=== PATIENT | female | born 1955 | race African-American/Black ===

== ENCOUNTER 2018-09-30 10:39 | Observation (INO) ==
[2018-09-30 12:10] LABS: Basophils % 0.7 % (0.0-0.8); Eosinophils # 0.2 10*3/uL (0.0-0.87); Eosinophils % 2.7 % (0.00-10.9); Hemoglobin 13.8 GM/DL (12.0-16.0); Immature Granulocytes % 0.5 %; Immature Granulocytes Absolute 0.03 #; Lymphocytes # 1.9 10*3/uL (1.4-4.0); Lymphocytes % 32.1 % (21.3-54.2); Mean Corpuscular HGB Conc 31.4 GM/DL (32-36); Mean Corpuscular Hemoglobin 27 PG (27-34); Mean Corpuscular Volume 85.1 FL (87-102); Mean Platelet Volume 11.1 FL (9.6-12.0); Monocytes # 0.4 10*3/uL (0.11-0.8); Monocytes % 6.9 % (1.7-12.7); Neutrophils # 3.4 10*3/uL (1.4-7.4); Neutrophils % 57.1 % (38.7-73.9); Platelet Count 192 T/CUMM (130-400); Red Blood Count 5.17 MC/CUMM (3.8-5.5); Red Cell Distribution Width 16.4 % (9.3-17.3)
[2018-09-30 12:37] LABS: Albumin 3.3 G/DL (3.4-5.0); Bilirubin,Total 0.4 MG/DL (0.2-1.0); Calcium 9.5 MG/DL (8.5-10.1); Osmolality,Calculated 294.9 MOS/KG (273-304); Potassium 5.5 MMOL/L (3.5-5.1); Total Protein 8.5 G/DL (6.4-8.3)
[2018-09-30] MEDS ORDERED: INSULIN REGULAR 100 UNIT/ML SUBCUT STA (12:55)
[2018-09-30] MEDS ORDERED: GLUCAGON 1 MG VIAL IM PRN (14:20)
[2018-09-30] MEDS ORDERED: LACTULOSE 20 GM/30 ML UDCUP PO PRN (14:20)
[2018-09-30] MEDS ORDERED: DEXTROSE 50% 25 GM/50 ML VIAL IV PRN (14:20)
[2018-09-30] MEDS ORDERED: ACETAMINOPHEN 325 MG TABLET PO PRN (14:20)
[2018-09-30] MEDS ORDERED: ONDANSETRON 4 MG/2 ML VIAL IV PRN (14:20)
[2018-09-30] MEDS ORDERED: DOCUSATE SODIUM 100 MG CAPSULE PO PRN (14:20)
[2018-09-30 14:56] LABS: Risk Ratio 5.95; Thyroid Stimulating Hormone 1.24 uIU/ml (0.358-3.74); VLDL CHOLESTEROL 51.4 MG/DL
[2018-09-30] MEDS ORDERED: INSULIN GLARGINE 100 UNIT/ML SUBCUT SCH (21:00)
[2018-09-30] MEDS: HEPARIN 5,000 UNIT/1 ML VIAL SUBCUT SCH (21:04)
[2018-09-30] MEDS: INSULIN REGULAR 100 UNIT/ML SUBCUT SCH ×2 (21:05→21:06)
[2018-09-30] MEDS: CALCIUM CARBONATE CHEW 500 MG TABLET PO SCH (21:07)
[2018-09-30] MEDS: PANTOPRAZOLE 40 MG TABLET PO SCH (21:07)
[2018-09-30] MEDS: CARVEDILOL 6.25 MG TABLET PO SCH (21:07)
[2018-10-01] MEDS: HEPARIN 5,000 UNIT/1 ML VIAL SUBCUT SCH ×2 (01:13→06:48)
[2018-10-01 06:49] LABS: Basophils % 0.6 % (0.0-0.8); Eosinophils # 0.2 10*3/uL (0.0-0.87); Eosinophils % 2.9 % (0.00-10.9); Hematocrit 40.3 VOL% (35.7-47.0); Hemoglobin 12.7 GM/DL (12.0-16.0); Immature Granulocytes % 0.1 %; Immature Granulocytes Absolute 0.01 #; Lymphocytes # 2.5 10*3/uL (1.4-4.0); Lymphocytes % 36.4 % (21.3-54.2); Mean Corpuscular HGB Conc 31.5 GM/DL (32-36); Mean Corpuscular Hemoglobin 26 PG (27-34); Mean Corpuscular Volume 83.8 FL (87-102); Mean Platelet Volume 11.7 FL (9.6-12.0); Monocytes # 0.4 10*3/uL (0.11-0.8); Monocytes % 6.2 % (1.7-12.7); Neutrophils # 3.7 10*3/uL (1.4-7.4); Neutrophils % 53.8 % (38.7-73.9); Platelet Count 155 T/CUMM (130-400); Red Blood Count 4.81 MC/CUMM (3.8-5.5); Red Cell Distribution Width 16.5 % (9.3-17.3); White Blood Count 6.8 T/CUMM (4-12)
[2018-10-01 06:57] LABS: Calcium 8.9 MG/DL (8.5-10.1); Osmolality,Calculated 290.1 MOS/KG (273-304); Potassium 4.7 MMOL/L (3.5-5.1)
[2018-10-01] MEDS ORDERED: REPAGLINIDE 0.5 MG TABLET PO SCH (07:30)
[2018-10-01] MEDS: INSULIN REGULAR 100 UNIT/ML SUBCUT SCH ×3 (08:34→12:09)
[2018-10-01] MEDS: CALCIUM CARBONATE CHEW 500 MG TABLET PO SCH (08:35)
[2018-10-01] MEDS: PANTOPRAZOLE 40 MG TABLET PO SCH (08:35)
[2018-10-01] MEDS: glipiZIDE 5 MG TABLET PO SCH ×2 (08:36→08:48)
[2018-10-01] MEDS: CARVEDILOL 6.25 MG TABLET PO SCH ×2 (08:36→08:48)
[2018-10-01] MEDS: REPAGLINIDE 1 MG TABLET PO SCH ×2 (08:36→12:10)
[2018-10-01] MEDS ORDERED: MECLIZINE 25 MG TABLET PO SCH (09:00)
[2018-10-01] MEDS ORDERED: amLODIPine 2.5 MG TABLET PO SCH (09:00)
[2018-10-01 12:34] VITALS: BP 140/78
[2018-10-01] MEDS ORDERED: INSULIN GLARGINE 100 UNIT/ML SUBCUT SCH (21:00)
== END 2018-10-01 13:35 | disposition home or self-care (01) ==
LOC: N.EDINP 10:39 → N.ED 10:39 → SUATTDRO 14:20 → N.5E 16:05
PROVIDERS: ADMIT Hospitalist; ATTEND Internal Medicine Nephrology

== ENCOUNTER 2018-11-04 21:47 | Observation (INO) ==
[2018-11-04 23:34] LABS: Basophils # 0.1 10*3/uL (0.0-0.2); Basophils % 0.6 % (0.0-0.8); Eosinophils # 0.6 10*3/uL (0.0-0.87); Eosinophils % 5.9 % (0.00-10.9); Hematocrit 39.1 VOL% (35.7-47.0); Hemoglobin 12.2 GM/DL (12.0-16.0); Immature Granulocytes % 0.5 %; Immature Granulocytes Absolute 0.05 #; Lymphocytes # 2.3 10*3/uL (1.4-4.0); Lymphocytes % 23.4 % (21.3-54.2); Mean Corpuscular HGB Conc 31.2 GM/DL (32-36); Mean Platelet Volume 10.5 FL (9.6-12.0); Monocytes % 6.7 % (1.7-12.7); Neutrophils % 62.9 % (38.7-73.9); Platelet Count 261 T/CUMM (130-400); Red Blood Count 4.71 MC/CUMM (3.8-5.5); Red Cell Distribution Width 15.4 % (9.3-17.3); White Blood Count 9.7 T/CUMM (4-12)
[2018-11-04 23:43] LABS: INR 0.9; PT Patient Result 9.8 SECS; Partial Thromboplastin Time 26.1 SECS (0-40)
[2018-11-05 01:23] LABS: Alkaline Phosphatase 123 U/L (45-117); Aspartate Amino Transferase 7 U/L (0-37); Calcium 8.1 MG/DL (8.5-10.1)
[2018-11-05 01:24] LABS: Alanine Aminotransferase 11 U/L (13-56); Albumin 3.2 G/DL (3.4-5.0); Bilirubin,Total < 0.39 MG/DL (0.2-1.0); Blood Urea Nitrogen 125 MG/DL (7-18); Glucose 217 MG/DL (74-106); Osmolality,Calculated 316.1 MOS/KG (273-304); Total Protein 7.6 G/DL (6.4-8.3)
[2018-11-05 01:25] LABS: Troponin I < 0.015 NG/ML (0.00-0.045)
[2018-11-05] MEDS ORDERED: BISACODYL 5 MG TABLET PO PRN (03:00)
[2018-11-05] MEDS ORDERED: ONDANSETRON 4 MG/2 ML VIAL IV PRN (03:00)
[2018-11-05] MEDS ORDERED: hydrALAZINE 20 MG/1 ML VIAL IV PRN (03:45)
[2018-11-05] MEDS ORDERED: CALCIUM GLUCONATE 1,000 MG in SODIUM CHLORIDE 0.9% 100 ML IV ONE (04:00)
[2018-11-05] MEDS ORDERED: SODIUM POLYSTYRENE SULFATE 15 GM/60 ML BOTTLE PO ONE (04:00)
[2018-11-05 05:53] LABS: Basophils # 0.1 10*3/uL (0.0-0.2); Basophils % 0.6 % (0.0-0.8); Eosinophils # 0.6 10*3/uL (0.0-0.87); Eosinophils % 7.1 % (0.00-10.9); Hematocrit 39.3 VOL% (35.7-47.0); Hemoglobin 12.3 GM/DL (12.0-16.0); Immature Granulocytes % 0.4 %; Immature Granulocytes Absolute 0.03 #; Mean Corpuscular HGB Conc 31.3 GM/DL (32-36); Mean Corpuscular Volume 82.2 FL (87-102); Mean Platelet Volume 10.4 FL (9.6-12.0); Monocytes % 6.2 % (1.7-12.7); Neutrophils % 60.7 % (38.7-73.9); Platelet Count 247 T/CUMM (130-400); Red Blood Count 4.78 MC/CUMM (3.8-5.5); Red Cell Distribution Width 15.6 % (9.3-17.3); White Blood Count 8.2 T/CUMM (4-12)
[2018-11-05 06:17] LABS: Albumin 2.8 G/DL (3.4-5.0); Bilirubin,Total 0.6 MG/DL (0.2-1.0); Calcium 8.7 MG/DL (8.5-10.1); Osmolality,Calculated 309.2 MOS/KG (273-304); Total Protein 8.1 G/DL (6.4-8.3)
[2018-11-05] MEDS: PANTOPRAZOLE 40 MG TABLET PO SCH (08:15)
[2018-11-05] MEDS: INSULIN REGULAR 100 UNIT/ML SUBCUT SCH (23:24)
[2018-11-06 06:11] LABS: Basophils # 0.1 10*3/uL (0.0-0.2); Basophils % 0.9 % (0.0-0.8); Eosinophils # 0.5 10*3/uL (0.0-0.87); Eosinophils % 7.3 % (0.00-10.9); Hematocrit 34.6 VOL% (35.7-47.0); Hemoglobin 11.1 GM/DL (12.0-16.0); Immature Granulocytes % 0.3 %; Immature Granulocytes Absolute 0.02 #; Lymphocytes % 28.8 % (21.3-54.2); Mean Corpuscular HGB Conc 32.1 GM/DL (32-36); Mean Corpuscular Volume 81.6 FL (87-102); Mean Platelet Volume 10.3 FL (9.6-12.0); Monocytes % 8.2 % (1.7-12.7); Neutrophils % 54.5 % (38.7-73.9); Platelet Count 178 T/CUMM (130-400); Red Blood Count 4.24 MC/CUMM (3.8-5.5); Red Cell Distribution Width 15.4 % (9.3-17.3); White Blood Count 6.9 T/CUMM (4-12)
[2018-11-06 06:37] LABS: Calcium 8.2 MG/DL (8.5-10.1); Osmolality,Calculated 296.8 MOS/KG (273-304)
[2018-11-06] MEDS: PANTOPRAZOLE 40 MG TABLET PO SCH (08:31)
[2018-11-06] MEDS: INSULIN REGULAR 100 UNIT/ML SUBCUT SCH ×4 (08:57→21:25)
[2018-11-06] MEDS: ASPIRIN EC 81 MG TABLET PO SCH (17:13)
[2018-11-07 06:00] LABS: Basophils # 0.1 10*3/uL (0.0-0.2); Eosinophils # 0.5 10*3/uL (0.0-0.87); Eosinophils % 6.2 % (0.00-10.9); Hematocrit 34.9 VOL% (35.7-47.0); Hemoglobin 10.9 GM/DL (12.0-16.0); Immature Granulocytes % 0.4 %; Immature Granulocytes Absolute 0.03 #; Lymphocytes # 1.6 10*3/uL (1.4-4.0); Lymphocytes % 21.6 % (21.3-54.2); Mean Corpuscular HGB Conc 31.2 GM/DL (32-36); Mean Corpuscular Volume 82.1 FL (87-102); Mean Platelet Volume 10.7 FL (9.6-12.0); Monocytes % 8.5 % (1.7-12.7); Neutrophils % 62.3 % (38.7-73.9); Platelet Count 188 T/CUMM (130-400); Red Blood Count 4.25 MC/CUMM (3.8-5.5); Red Cell Distribution Width 15.7 % (9.3-17.3); White Blood Count 7.3 T/CUMM (4-12)
[2018-11-07 06:23] LABS: Calcium 8.8 MG/DL (8.5-10.1); Osmolality,Calculated 289.5 MOS/KG (273-304)
[2018-11-07] MEDS: INSULIN REGULAR 100 UNIT/ML SUBCUT SCH ×4 (07:30→21:05)
[2018-11-07] MEDS: ASPIRIN EC 81 MG TABLET PO SCH (09:50)
[2018-11-07] MEDS: PANTOPRAZOLE 40 MG TABLET PO SCH (09:52)
[2018-11-07] MEDS ORDERED: REPAGLINIDE 1 MG TABLET PO SCH (16:30)
[2018-11-07] MEDS ORDERED: CINACALCET 30 MG TABLET PO SCH (17:00)
[2018-11-07] MEDS ORDERED: INSULIN GLARGINE 100 UNIT/ML SUBCUT SCH (21:00)
[2018-11-07] MEDS: CALCIUM CARBONATE CHEW 500 MG TABLET PO SCH (21:04)
[2018-11-07] MEDS: CARVEDILOL 6.25 MG TABLET PO SCH (21:04)
[2018-11-08 08:40] VITALS: BP 121/66
[2018-11-08] MEDS ORDERED: MULTIVITAMIN (CENTRUM) TABLET PO SCH (09:00)
[2018-11-08] MEDS ORDERED: MECLIZINE 25 MG TABLET PO SCH (09:00)
[2018-11-08] MEDS: PANTOPRAZOLE 40 MG TABLET PO SCH (09:33)
[2018-11-08] MEDS: CALCIUM CARBONATE CHEW 500 MG TABLET PO SCH (09:33)
[2018-11-08] MEDS: CARVEDILOL 6.25 MG TABLET PO SCH (09:33)
[2018-11-08] MEDS: ASPIRIN EC 81 MG TABLET PO SCH (09:33)
[2018-11-08] MEDS: INSULIN REGULAR 100 UNIT/ML SUBCUT SCH ×2 (09:34→12:22)
== END 2018-11-08 14:14 | disposition home health service (06) ==
LOC: N.ED 21:47 → N.EDINP 21:47 → SUATTDRO 11-05 03:00 → N.5E 11-05 03:31
PROVIDERS: ADMIT Internal Medicine; ATTEND Internal Medicine